=== PATIENT | male | born 1990 | race Caucasian/White ===

== ENCOUNTER 2018-05-18 09:02 | Emergency (ER) | payer MEDICAID ==
[~2018-05-18] VITALS: Ht 180.3 cm; Wt 103.0 kg
[2018-05-18 09:06] VITALS: BP 144/91
[2018-05-18] MEDS ORDERED: HYDR-4353 PO (09:58)
[2018-05-18] MEDS ORDERED: PENI250T2 PO (09:58)
== END 2018-05-18 10:08 | disposition home or self-care (01) ==
LOC: ER 09:03
DX: S02.5XXA Fracture of tooth (traumatic), initial encounter for closed fracture (principal); K04.7 Periapical abscess without sinus; I10 Essential (primary) hypertension; Z79.2 Long term (current) use of antibiotics; Z79.899 Other long term (current) drug therapy; X58.XXXA Exposure to other specified factors, initial encounter; Y93.89 Activity, other specified; Y92.89 Other specified places as the place of occurrence of the external cause; Y99.8 Other external cause status
CPT/HCPCS: 99283

== ENCOUNTER 2018-08-24 18:29 | Emergency (ER) | payer MEDICAID ==
[~2018-08-24] VITALS: Ht 180.3 cm; Wt 93.1 kg
[2018-08-24 18:30] VITALS: BP 170/105
[2018-08-24] MEDS ORDERED: LIDOcaine 1% w/epiNEPHrine 1:200,000 30ml vial IM ONE (19:00)
[2018-08-24] MEDS: TETanus/Pertussis (Acell)/Diphther VAC/PF (Tdap-Adult) 0.5ml syringe IM ONE ×2 (19:11→19:38)
== END 2018-08-24 19:49 | disposition home or self-care (01) ==
LOC: ER 18:30
DX: S61.411A Laceration without foreign body of right hand, initial encounter (principal); I10 Essential (primary) hypertension; W26.0XXA Contact with knife, initial encounter; Y93.89 Activity, other specified; Y92.89 Other specified places as the place of occurrence of the external cause; Y99.8 Other external cause status
CPT/HCPCS: 12001; 90471; 90715; 99283; J3490